=== PATIENT | female | born 2000 | race Caucasian/White ===

== ENCOUNTER 2023-08-22 16:23 | Emergency (ER) | payer OTHER ==
[~2023-08-22] VITALS: Ht 157.5 cm; Wt 60.2 kg
[2023-08-22 16:25] VITALS: BP 152/81; TEMP 97.8; O2SAT 98
[2023-08-22] MEDS: LIDOCAINE 1% MDV 20ML VIAL SC ONE (21:10)
== END 2023-08-22 21:54 | disposition home or self-care (01) ==
LOC: M ED 16:23
DX: S61.210A Laceration without foreign body of right index finger without damage to nail, initial encounter (principal); W26.0XXA Contact with knife, initial encounter; Y92.010 Kitchen of single-family (private) house as the place of occurrence of the external cause; Y93.G1 Activity, food preparation and clean up; Y99.9 Unspecified external cause status